=== PATIENT | male | born 1940 | race Caucasian/White ===

== ENCOUNTER 2016-05-26 00:35 | Outpatient (CLI) | END 2016-05-26 00:36 | disposition home or self-care (01) | LOC: AMBL 00:35 | PROVIDERS: ATTEND Emergency Medicine | DX: R07.9 Chest pain, unspecified (principal); R06.9 Unspecified abnormalities of breathing; R00.0 Tachycardia, unspecified; R61 Generalized hyperhidrosis ==

== ENCOUNTER 2016-09-01 18:28 | Outpatient (CLI) | END 2016-09-01 18:29 | LOC: AMBL 18:28 | PROVIDERS: ATTEND Internal Medicine | DX: R31.0 Gross hematuria (principal); R41.0 Disorientation, unspecified; I48.91 Unspecified atrial fibrillation; Z96.0 Presence of urogenital implants ==

== ENCOUNTER 2016-11-06 14:10 | Outpatient (CLI) | END 2016-11-06 14:11 | disposition home or self-care (01) | LOC: AMBL 14:10 | PROVIDERS: ATTEND Emergency Medicine | DX: Z51.81 Encounter for therapeutic drug level monitoring (principal); Z79.899 Other long term (current) drug therapy; G93.41 Metabolic encephalopathy ==